=== PATIENT | female | born 1950 | race African-American/Black ===

== ENCOUNTER → 2019-10-25 09:23 | Outpatient (CLI) | payer OTHER, SELFPAY ==
--- NOTE | ~2019-10-25 | XR_ITS ---
XR abdomen/kub 1V DATE: 10/25/2019 09:59 INDICATION: Right flank pain for one week. Microscopic hematuria. TECHNIQUE: AP projection, 2 views COMPARISON: None FINDINGS: Surgical clips overlie right upper quadrant, consistent with cholecystectomy. No visceromegaly is evident. There is a prominent amount of fecal material in the colon, particularly the right colon. No bowel obstruction is evident. There are multiple bilateral calcified pelvic phle boliths. Bilateral hip osteophytosis, more severe on the left. Diffuse idiopathic skeletal hyperostosis of the lower thoracic spine. IMPRESSION: Prominent amount of the colon; no evidence of bowel obstruction Status post cholecystectomy Bilateral hip osteoarthritis, particularly severe on the left Reviewed, dictated and finalized at [facility]. Reviewed, dictated and finalized at location [facility].
== END ==
PROVIDERS: PCP Physician Assistant; Visit Provider Physician Assistant
DX: R10.9 Unspecified abdominal pain (principal); Z90.49 Acquired absence of other specified parts of digestive tract; M16.0 Bilateral primary osteoarthritis of hip
CPT/HCPCS: 74018

== ENCOUNTER → 2020-03-19 14:11 | Outpatient (CLI) | payer OTHER, SELFPAY ==
--- NOTE | ~2020-03-19 | XR_ITS ---
XR shoulder LT min 2V 03/19/2020 14:37 INDICATION: Chronic left shoulder pain PROCEDURE: 4 views left shoulder COMPARISON: FINDINGS: Fracture, dislocation or subluxation is not identified. Mild osteoarthritis of the acromioc lavicular joint. The soft tissues appear within normal limits. No foreign bodies are identified. IMPRESSION: 1: Mild osteoarthritis of the acromioclavicular joint. Reviewed, dictated and finalized at location [facility]. [facility]
== END ==
PROVIDERS: PCP Family Medicine; Visit Provider Family Medicine
DX: M19.012 Primary osteoarthritis, left shoulder (principal)
CPT/HCPCS: 73030

== ENCOUNTER → 2022-11-05 12:07 | Outpatient (CLI) | payer OTHER, SELFPAY ==
--- NOTE | ~2022-11-05 | XR_ITS ---
AP and lateral views of the right hip Clinical history: Pain Findings: No acute fracture or dislocation is seen. Osseous alignment is anatomic. There is moderate right hip joint degenerative change. Soft tissues are unremarkable. Impression: Moderate right hip degenerative change. Reviewed, dictated and finalized at location . Impression: Moderate right hip degenerative change.
--- NOTE | ~2022-11-05 | XR_ITS ---
Left Knee Technique: AP, lateral, and sunrise views were obtained. Clinical History: Pain Findings: No fracture or dislocation is seen. Osseous alignment is anatomic. There is medial joint li ne osteophyte formation. There is minimal spurring at the lateral joint line and patella. Soft tissue s are unremarkable. No joint effusion is seen. Impression: Mild tricompartmental osteophytes, worst in the medial compartment. Reviewed, dictated and finalized at location [facility]. Impression: Mild tricompartmental osteophytes, worst in the medial compartment.
== END ==
PROVIDERS: PCP Physician Assistant; Visit Provider Physician Assistant
DX: M25.561 Pain in right knee (principal); M25.562 Pain in left knee; M25.762 Osteophyte, left knee
CPT/HCPCS: 73502; 73562